=== PATIENT | female | born 1985 | race Caucasian/White ===

== ENCOUNTER 2024-11-29 23:41 | Emergency (ER) | payer SELFPAY ==
--- OUTSIDE RECORDS SUMMARY | 2024-11-29 23:43 | XMS_ITS | Clinical Summary ---
Author Organization [facility] Address [address] [place] [id number] Care Team Providers Care Retail Department Manager Name Role Phone Provider, Not In System Primary Care Provider Un available Source Comments This disclosure is being made pursuant to the [employer] program and maynot contain all information available regarding this patient.[facility] Allergies No known active allergies Social History Tobacco Use Types Packs/Day Years Used Date Smoking Tobacco: Never Assessed Comments Unknown Sex and Gender Information Value Date Recorded Sex Assigned at Not on file Legal Sex Female 5:41 PM CDT Gender Identity Not on file Sexual Orientation Not on file Last Filed Vital Signs Vital Sign Reading Time Taken Comments Blood Pressure 102/69 2015 7:45 PM CDT Pulse 65 2015 7:45 PM CDT Temperature 36.8 C (98.2 F) 2015 5:50 PM CDT Respiratory Rate 16 2015 5:50 PM CDT Oxygen Saturation 99% 2015 7:45 PM CDT Inhaled Oxygen Concentration - - Weight 52.2 kg (115 lb) 2015 5:50 PM CDT Height 172.7 cm (5' 8) 2015 5:50 PM CDT Body Mass Index 17.49 2015 5:50 PM CDT Plan of Treatment Health Maintenance Due Date Last Done Comments Breast Cancer Screening-Mammogram 1983 Cervical Cancer Screening 1983 HPV 1983 Lab-Cholesterol Screening 1983 Lab-Hepatitis C Screening 1983 Annual Wellness Visit 10/22/2001 Hepatitis B Vaccine (1 of 3 - 19+ 3-dose series) 10/22/2002 Tetanus/Pertussis Vaccine Teen/Adult (1 - Tdap) 10/22/2002 Pap Smear 10/22/2004 HPV Vaccine (9-26yo & Shared Decision 27-45yo) (1 - 3-dose SCDM series) 10/22/2010 COVID-19 Vaccine (2023-2 5 season) 2023 Influenza Vaccine (#1) 2024 3, 01/08/2009 Zoster (Shingles) Vaccine 50 + (1 of 2) 10/22/2033 RSV Adult (1 - 1-dose 75+ series) 10/22/2058 HIB Vaccine Aged Out No longer eligi ble based on patient's age to complete this topic Hepatitis A Vaccine Aged Out No longe r eligible based on patient's age to complete this topic IPV Vaccine Aged Out No longer eligi ble based on patient's age to complete this topic Meningococcal Conjugate Vaccine Aged Out No longer eligible b ased on patient's age to complete this topic Pneumococcal Vaccines 0-49 yo Aged Out No longer eligible based on patient's age to complete this topic RSV < 20 Months Aged Out No longer el igible based on patient's age to complete this topic Insurance Care Teams Retail Department Manager Relationship Specialty Start Date End Date Provider, Not In System PCP - General 10/23/15
[2024-11-29 23:49] VITALS: BP 110/76; PULSE 78; RESP 18; TEMP 36.4; O2SAT 99
--- NOTE | 2024-11-30 02:15 | ED_ITS ---
HPI - Skin/Abscess/Foreign Bdy General Chief complaint: Skin/Abscess/Foreign Body Stated complaint: bug bite, reaction Time Seen by Provider: 11/30/24 01:26 History of Present Illness HPI narrative: 39-year-old otherwise healthy female presenting with allergic reaction potential bug bite. She states she feels like she got bit on the right side of her neck and then started developing hives and a rash as well as some facial swelling. Most of the symptoms have since resolved entirely she still has some redness and some blotchy discoloration to her face and upper extremity chest and back. She states she took several rounds of Benadryl earlier today and fell asleep. Facial swelling has since subsided. No anaphylaxis symptoms such as difficulty breathing, throat closing sensations, GI upset. She was otherwise in her normal state of health. Denies any complaints at this time aside from the red skin discoloration. Related Data Allergies Allergy/AdvReac Type Severity Reaction Status Date / Time venom-wasp Allergy Unknown Other Verified 11/29/24 23:52 seafood Allergy Other Uncoded 11/29/24 23:52 Review of Systems Review of Systems: As reviewed above in HPI Exam Narrative: GENERAL: [Well-appearing, well-nourished, and in no acute distress.] HEAD: [Normocephalic, atraumatic.] EYES: [PERRLA and EOMI.] ENT: Nares clear, no rhinorrhea or epistaxis. Mucous membranes moist. NECK: Supple. CHEST: [Clear to auscultation. No respiratory distress.] HEART: [Regular rate and rhythm]. No murmur heard. [Normal peripheral pulses.] ABDOMEN: [Soft, nondistended], [nontender], [No rigidity or guarding] EXTREMITIES: Normal range of motion. [No edema.] SKIN: Redness with previous urticarial rash evident on her upper extremities, chest and back. Some redness and splotches to her face but no swelling or periorbital edema. Bug bite site with 2 punctate in her right-sided neck without any signs of purulence, infection or cellulitis. NEURO: [No focal deficits]. Alert and oriented [x3.] PSYCH: [Normal mood and affect.] Course Vital Signs Vital signs: Vital Signs Temperature 36.4 C 11/29/24 23:49 Pulse Rate 78 11/29/24 23:49 Respiratory Rate 18 11/29/24 23:49 Blood Pressure 110/76 11/29/24 23:49 Pulse Oximetry 99 11/29/24 23:49 Oxygen Delivery Room Air 11/29/24 23:49 Temperature 36.4 C 11/29/24 23:49 Pulse Rate 78 11/29/24 23:49 Respiratory Rate 18 11/29/24 23:49 Blood Pressure 110/76 11/29/24 23:49 Pulse Oximetry 99 11/29/24 23:49 Oxygen Delivery Room Air 11/29/24 23:49 MDM - Skin/Abscess/Foreign Bdy MDM Narrative Medical decision making narrative: 39-year-old otherwise healthy female presenting with allergic reaction potential bug bite. She states she feels like she got bit on the right side of her neck and then started developing hives and a rash as well as some facial swelling. Most of the symptoms have since resolved entirely she still has some redness and some blotchy discoloration to her face and upper extremity chest and back. She states she took several rounds of Benadryl earlier today and fell asleep. Facial swelling has since subsided. No anaphylaxis symptoms such as difficulty breathing, throat closing sensations, GI upset. She was otherwise in her normal state of health. Denies any complaints at this time aside from the red skin discoloration. Redness with previous urticarial rash evident on her upper extremities, chest and back. Some redness and splotches to her face but no swelling or periorbital edema. Bug bite site with 2 punctate in her right-sided neck without any signs of purulence, infection or cellulitis. Patient has no signs or symptoms of anaphylaxis time and hemodynamically stable. Her symptoms are improving with Benadryl therapy alone. Discussed other potential therapies including Pepcid or steroids. Given her lack of systemic symptoms at this time we will treat this with Benadryl and Pepcid. She is given Pepcid urine prescription for the above. Given return precautions and safe for discharge home at this time. Medical Records Attestation: I reviewed the patient's medical records. Discharge Plan Discharge Clinical Impression: Urticarial rash, Bug bite Patient Disposition: Home Condition: Stable Instructions: Antibiotic Form Additional Instructions: Take 50 mg of Benadryl up to 3 times a day in addition to taking 20 mg of Pepcid up to twice a day for symptoms of allergic reaction and your rash. If you start developing symptoms such as anaphylaxis symptoms which include difficulty breathing, throat closing sensations, GI upset such as diarrhea or nauseousness please return to the emergency department otherwise these medications can help with the allergic reaction your experiencing. Watch out for signs and symptoms of infection at the wound bite site but low suspicion this will become infected. Return with any emergent concerns otherwise follow-up with your regular PCP as needed Patient Language: Malawian Prescriptions: New famotidine [Pepcid] 20 mg tablet 20 mg PO BID Qty: 20 0RF diphenhydramine HCl [Allergy (diphenhydramine)] 25 mg capsule 50 mg PO TID PRN (Reason: allergic reaction) Qty: 30 0RF Follow-up/Referrals: PHYSICIAN,BRIM POUNCER MACHINE OPERATOR [Primary Care Provider] - Time of Disposition: 02:15
[2024-11-30] MEDS: FAMOTIDINE 20 MG TABLET PO (02:23)
== END 2024-11-30 02:34 | disposition home or self-care (01) ==
PROVIDERS: Emergency Provider Student in an Organized Health Care Education/Training Program
DX: S10.96XA Insect bite of unspecified part of neck, initial encounter (principal); L50.8 Other urticaria; W57.XXXA Bitten or stung by nonvenomous insect and other nonvenomous arthropods, initial encounter
CPT/HCPCS: 99283; A9270